=== PATIENT | female | born 1940 | race Caucasian/White ===

== ENCOUNTER 2016-11-12 12:27 | Outpatient (CLI) | payer MEDICARE, BC | END 2016-11-12 12:28 | disposition home or self-care (01) | DX: I48.91 Unspecified atrial fibrillation (principal) ==

== ENCOUNTER 2016-12-11 15:08 | Outpatient (CLI) | payer MEDICARE, BC | END 2016-12-11 15:09 | disposition home or self-care (01) | DX: I48.91 Unspecified atrial fibrillation (principal) ==

== ENCOUNTER 2017-01-08 13:02 | Outpatient (CLI) | payer MEDICARE, BC | END 2017-01-08 13:03 | disposition home or self-care (01) | DX: I48.91 Unspecified atrial fibrillation (principal) ==

== ENCOUNTER 2017-01-22 13:54 | Outpatient (CLI) | payer MEDICARE, BC | END 2017-01-22 13:55 | disposition home or self-care (01) | DX: I48.91 Unspecified atrial fibrillation (principal) ==

== ENCOUNTER 2017-02-03 13:08 | Outpatient (CLI) | payer MEDICARE, BC | END 2017-02-03 13:09 | disposition home or self-care (01) | DX: I48.91 Unspecified atrial fibrillation (principal) ==

== ENCOUNTER 2017-03-03 08:00 | Outpatient (CLI) | payer MEDICARE, BC | END 2017-03-03 08:01 | disposition home or self-care (01) | DX: I48.91 Unspecified atrial fibrillation (principal); E03.9 Hypothyroidism, unspecified ==

== ENCOUNTER 2017-03-03 08:00 | Outpatient (CLI) | payer MEDICARE, BC | END 2017-03-03 08:01 | disposition home or self-care (01) | DX: Z53.9 Procedure and treatment not carried out, unspecified reason (principal) ==

== ENCOUNTER 2017-04-01 10:13 | Outpatient (CLI) | payer MEDICARE, BC | END 2017-04-01 10:14 | disposition home or self-care (01) | LOC: LAB 10:13 | PROVIDERS: ATTEND Family Medicine | DX: I48.91 Unspecified atrial fibrillation (principal) | CPT/HCPCS: 85610 ==

== ENCOUNTER 2017-04-20 00:14 | Emergency (ER) | payer MEDICARE, BC ==
--- NOTE | 2017-04-20 01:51 | ED Physician Documentation ---
History of Present Illness - Stated complaint Stated Complaint: MOUTH BLEEDING - Chief complaint Chief Complaint: General - History obtained from History obtained from: Patient - Additonal information Additional information: The patient is a 77-year-old female who was sitting at home when she noticed blood in her mouth. She denies any injury, but is concerned because of treatment with warfarin for atrial fibrillation. Her last INR, nearly three weeks ago, was 2.6. 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 - Present Medications Home Medications: Ambulatory Orders Medication Instructions Recorded Confirmed Atenolol 12.5 mg PO BID 12/02/15 04/20/17 Warfarin [Coumadin] 2 mg PO 12/02/15 12/02/15 Esomeprazole Magnesium [Nexium] 40 mg PO DAILY 07/22/16 04/20/17 Warfarin [Coumadin] 1 mg 04/20/17 diltiaZEM [Cardizem] 120 mg PO DAILY 04/20/17 04/20/17 - Allergies Allergies/Adverse Reactions: Allergies Allergy/AdvReac Type Severity Reaction Status Date / Time morphine Allergy Hallucinati Verified 12/02/15 16:13 ons Sulfa (Sulfonamide Allergy Unknown Verified 12/02/15 16:12 Antibiotics) - Social History Does the pt smoke?: No Smoking Status: Never smoker Does the pt drink ETOH?: No Does the pt have substance abuse?: No PD ED PE NORMAL - Vitals Vital signs reviewed: Yes (Hypertensive) - General General: Alert and oriented X 3, Well developed/nourished - HEENT HEENT: Atraumatic, EOMI, Pharynx benign, Other (There is scant bright blood on the right nasal mucosa, without bleeding currently. There is no blood or any sores found in the mouth.) - Neck Neck: No adenopathy, No JVD - Cardiac Cardiac: No murmur, Other (Regular rate, irregularly irregular rhythm.) - Respiratory Respiratory: No respiratory distress, Clear bilaterally - Derm Derm: No rash - Neuro Neuro: Alert and oriented X 3, No motor deficit, Normal speech Results - Vitals Vitals: Vital Signs - 24 hr 04/20/17 04/20/17 00:18 02:01 Temperature 36.2 C L 36.6 C Heart Rate 80 74 Respiratory 16 18 Rate Blood Pressure 180/104 H 170/89 H O2 Saturation 98 95 Oxygen O2 Source Room air - Labs Labs: Laboratory Tests 04/20/17 01:28 Whole Blood INR 2.2 H PD MEDICAL DECISION MAKING - ED course Complexity details: reviewed results, re-evaluated patient, considered differential, d/w patient, d/w family ED course: The patient's presentation is most consistent with a minor right anterior epistaxis. There is no ongoing bleeding, and I do not think cautery would be of clinical benefit at this time. INR was checked and is in the therapeutic range at 2.2. I discussed with the patient and her the likely source of blood , and advised no change in her anticoagulation medication. I discussed with them potentially worrisome signs or symptoms that should prompt reevaluation in the emergency department. Departure - Departure Disposition: 01 Home, Self Care Clinical Impression: Anterior epistaxis, Warfarin anticoagulation Atrial fibrillation Qualifiers: Atrial fibrillation type: chronic Qualified Code(s): I48.2 - Chronic atrial fibrillation Hypertension Qualifiers: Hypertension type: unspecified secondary hypertension Qualified Code(s): I15.9 - Secondary hypertension, unspecified; I15 - Secondary hypertension Condition: Stable Instructions: ED Nosebleed Follow-Up: Piero Hammer MD [Primary Care Provider] - Comments: Avoid straining or forceful sneezing. Continue warfarin at your previously prescribed dosage. Follow-up with your primary physician or return to the emergency department if you develop recurrent or increasing nosebleed that does not resolve within fifteen minutes of holding pressure. Discharge Date/Time: 04/20/17 02:12
[2017-04-20 02:01] VITALS: BP 170/89
== END 2017-04-20 02:12 | disposition home or self-care (01) ==
LOC: ED 00:14
DX: R04.0 Epistaxis (principal); I48.2 Chronic atrial fibrillation; I10 Essential (primary) hypertension; Z79.01 Long term (current) use of anticoagulants
CPT/HCPCS: 85610; 99282; 99283

== ENCOUNTER 2017-05-19 12:48 | Outpatient (CLI) | payer MEDICARE, BC | END 2017-05-19 12:49 | disposition home or self-care (01) | LOC: LAB 12:48 | PROVIDERS: ATTEND Family Medicine | DX: I48.91 Unspecified atrial fibrillation (principal) | CPT/HCPCS: 85610 ==

== ENCOUNTER 2017-05-25 09:00 | Outpatient (CLI) | payer MEDICARE, BC ==
--- NOTE | 2017-05-25 11:49 | XRAY Report ---
BILATERAL FIVE-VIEW KNEES: 05/25/2017 CLINICAL INDICATION: Pain. TECHNIQUE: AP, weightbearing AP, lateral, sunrise, notch views of the bilateral knees were obtained. COMPARISON: 12/02/2015 FINDINGS: Mild bilateral osteoarthritis is present. There is no evidence of acute fracture or dislo cation. No effusion is seen. IMPRESSION: MILD BILATERAL OSTEOARTHRITIS. JOB #: [id number] EXT JOB #:[id number]
== END 2017-05-25 09:01 | disposition home or self-care (01) ==
LOC: DI 09:00
PROVIDERS: ATTEND Orthopaedic Surgery
DX: M17.0 Bilateral primary osteoarthritis of knee (principal)

== ENCOUNTER 2017-06-17 11:18 | Outpatient (CLI) | payer MEDICARE, BC | END 2017-06-17 11:19 | disposition home or self-care (01) | LOC: LAB 11:18 | PROVIDERS: ATTEND Family Medicine | DX: I48.91 Unspecified atrial fibrillation (principal) | CPT/HCPCS: 85610 ==

== ENCOUNTER 2017-07-16 12:05 | Outpatient (CLI) | payer MEDICARE, BC | END 2017-07-16 12:06 | disposition home or self-care (01) | LOC: LAB 12:05 | PROVIDERS: ATTEND Family Medicine | DX: I48.91 Unspecified atrial fibrillation (principal) | CPT/HCPCS: 85610 ==

== ENCOUNTER 2017-07-29 15:02 | Outpatient (CLI) | payer MEDICARE, BC | END 2017-07-29 15:03 | disposition home or self-care (01) | LOC: LAB 15:02 | PROVIDERS: ATTEND Family Medicine | DX: I48.91 Unspecified atrial fibrillation (principal) | CPT/HCPCS: 85610 ==

== ENCOUNTER 2017-08-26 11:39 | Outpatient (CLI) | payer MEDICARE, BC | END 2017-08-26 11:40 | disposition home or self-care (01) | LOC: LAB 11:39 | PROVIDERS: ATTEND Family Medicine | DX: I48.91 Unspecified atrial fibrillation (principal) | CPT/HCPCS: 85610 ==

== ENCOUNTER 2017-09-08 12:54 | Outpatient (CLI) | payer MEDICARE, BC | END 2017-09-08 12:55 | disposition home or self-care (01) | LOC: LAB 12:54 | PROVIDERS: ATTEND Family Medicine | DX: I48.91 Unspecified atrial fibrillation (principal) | CPT/HCPCS: 85610 ==

== ENCOUNTER 2017-11-03 08:39 | Outpatient (CLI) | payer MEDICARE, BC | END 2017-11-03 08:40 | disposition home or self-care (01) | LOC: LAB 08:39 | PROVIDERS: ATTEND Family Medicine | DX: I48.91 Unspecified atrial fibrillation (principal) | CPT/HCPCS: 85610 ==

== ENCOUNTER 2017-11-16 15:46 | Outpatient (CLI) | payer MEDICARE, BC | END 2017-11-16 15:47 | disposition home or self-care (01) | LOC: LAB 15:46 | PROVIDERS: ATTEND Family Medicine | DX: I48.91 Unspecified atrial fibrillation (principal) | CPT/HCPCS: 85610 ==

== ENCOUNTER 2017-11-26 14:08 | Outpatient (CLI) | payer MEDICARE, BC | END 2017-11-26 14:09 | disposition home or self-care (01) | LOC: LAB 14:08 | PROVIDERS: ATTEND Family Medicine | DX: I48.91 Unspecified atrial fibrillation (principal) | CPT/HCPCS: 85610 ==

== ENCOUNTER 2017-12-24 14:05 | Outpatient (CLI) | payer MEDICARE, BC | END 2017-12-24 14:06 | disposition home or self-care (01) | LOC: LAB 14:05 | PROVIDERS: ATTEND Family Medicine | DX: I48.91 Unspecified atrial fibrillation (principal) | CPT/HCPCS: 85610 ==

== ENCOUNTER 2018-01-21 15:22 | Outpatient (CLI) | payer MEDICARE, BC | END 2018-01-21 15:23 | disposition home or self-care (01) | LOC: LAB 15:22 | PROVIDERS: ATTEND Family Medicine | DX: I48.91 Unspecified atrial fibrillation (principal) | CPT/HCPCS: 85610 ==

== ENCOUNTER 2018-02-19 13:01 | Outpatient (CLI) | payer MEDICARE, BC | END 2018-02-19 13:02 | disposition home or self-care (01) | LOC: LAB 13:01 | PROVIDERS: ATTEND Family Medicine | DX: I48.91 Unspecified atrial fibrillation (principal) | CPT/HCPCS: 85610 ==

== ENCOUNTER 2018-03-19 12:35 | Outpatient (CLI) | payer MEDICARE, BC | END 2018-03-19 12:36 | disposition home or self-care (01) | LOC: LAB 12:35 | PROVIDERS: ATTEND Family Medicine | DX: I48.91 Unspecified atrial fibrillation (principal) | CPT/HCPCS: 85610 ==

== ENCOUNTER 2018-04-16 12:22 | Outpatient (CLI) | payer MEDICARE, BC | END 2018-04-16 12:23 | disposition home or self-care (01) | LOC: LAB 12:22 | PROVIDERS: ATTEND Family Medicine | DX: I48.91 Unspecified atrial fibrillation (principal) | CPT/HCPCS: 85610 ==

== ENCOUNTER 2018-05-17 11:46 | Outpatient (CLI) | payer MEDICARE, BC | END 2018-05-17 11:47 | disposition home or self-care (01) | LOC: LAB 11:46 | PROVIDERS: ATTEND Family Medicine | DX: I48.91 Unspecified atrial fibrillation (principal) | CPT/HCPCS: 85610 ==

== ENCOUNTER 2018-05-31 11:25 | Outpatient (CLI) | payer MEDICARE, BC | END 2018-05-31 11:26 | disposition home or self-care (01) | LOC: LAB 11:25 | PROVIDERS: ATTEND Family Medicine | DX: I48.91 Unspecified atrial fibrillation (principal) | CPT/HCPCS: 85610 ==

== ENCOUNTER 2018-06-14 14:40 | Outpatient (CLI) | payer MEDICARE, BC | END 2018-06-14 14:41 | disposition home or self-care (01) | LOC: LAB 14:40 | PROVIDERS: ATTEND Family Medicine | DX: I48.91 Unspecified atrial fibrillation (principal) | CPT/HCPCS: 85610 ==

== ENCOUNTER 2018-06-28 16:55 | Outpatient (CLI) | payer MEDICARE, BC | END 2018-06-28 16:56 | disposition home or self-care (01) | LOC: LAB 16:55 | PROVIDERS: ATTEND Family Medicine | DX: I48.91 Unspecified atrial fibrillation (principal) | CPT/HCPCS: 85610 ==

== ENCOUNTER 2018-07-12 13:12 | Outpatient (CLI) | payer MEDICARE, BC | END 2018-07-12 13:13 | disposition home or self-care (01) | LOC: LAB 13:12 | PROVIDERS: ATTEND Family Medicine | DX: I48.91 Unspecified atrial fibrillation (principal) | CPT/HCPCS: 85610 ==

== ENCOUNTER 2018-07-25 15:25 | Outpatient (CLI) | payer MEDICARE, BC | END 2018-07-25 15:26 | disposition home or self-care (01) | LOC: LAB.R 15:25 | PROVIDERS: ATTEND Family Medicine | DX: I48.91 Unspecified atrial fibrillation (principal) | CPT/HCPCS: 85610 ==

== ENCOUNTER 2018-08-23 12:25 | Outpatient (CLI) | payer MEDICARE, BC | END 2018-08-23 12:26 | disposition home or self-care (01) | LOC: LAB 12:25 | PROVIDERS: ATTEND Family Medicine | DX: I48.91 Unspecified atrial fibrillation (principal) | CPT/HCPCS: 85610 ==

== ENCOUNTER 2018-09-21 13:42 | Outpatient (CLI) | payer MEDICARE, BC | END 2018-09-21 13:43 | disposition home or self-care (01) | LOC: LAB 13:42 | PROVIDERS: ATTEND Family Medicine | DX: I48.91 Unspecified atrial fibrillation (principal) | CPT/HCPCS: 85610 ==

== ENCOUNTER 2018-10-21 14:20 | Outpatient (CLI) | payer MEDICARE, BC | END 2018-10-21 14:21 | disposition home or self-care (01) | LOC: LAB 14:20 | PROVIDERS: ATTEND Family Medicine | DX: I48.91 Unspecified atrial fibrillation (principal) | CPT/HCPCS: 85610 ==

== ENCOUNTER 2018-11-20 12:11 | Outpatient (CLI) | payer MEDICARE, BC | END 2018-11-20 12:12 | disposition home or self-care (01) | LOC: LAB 12:11 | PROVIDERS: ATTEND Family Medicine | DX: I48.91 Unspecified atrial fibrillation (principal) | CPT/HCPCS: 85610 ==

== ENCOUNTER 2018-12-19 11:15 | Outpatient (CLI) | payer MEDICARE, BC | END 2018-12-19 11:16 | disposition home or self-care (01) | LOC: LAB 11:15 | PROVIDERS: ATTEND Family Medicine | DX: I48.91 Unspecified atrial fibrillation (principal) | CPT/HCPCS: 85610 ==

== ENCOUNTER 2019-01-16 18:09 | Outpatient (CLI) | payer MEDICARE, BC | END 2019-01-16 18:10 | disposition home or self-care (01) | LOC: LAB 18:09 | PROVIDERS: ATTEND Family Medicine | DX: I48.91 Unspecified atrial fibrillation (principal) | CPT/HCPCS: 85610 ==

== ENCOUNTER 2019-02-14 15:46 | Outpatient (CLI) | payer MEDICARE, BC | END 2019-02-14 15:47 | disposition home or self-care (01) | LOC: LAB 15:46 | PROVIDERS: ATTEND Family Medicine | DX: I48.91 Unspecified atrial fibrillation (principal) | CPT/HCPCS: 85610 ==

== ENCOUNTER 2019-03-16 11:07 | Outpatient (CLI) | payer MEDICARE, BC | END 2019-03-16 11:08 | disposition home or self-care (01) | LOC: LAB 11:07 | PROVIDERS: ATTEND Family Medicine | DX: I48.91 Unspecified atrial fibrillation (principal) | CPT/HCPCS: 85610 ==

== ENCOUNTER 2019-04-17 11:25 | Outpatient (CLI) | payer MEDICARE, BC | END 2019-04-17 11:26 | disposition home or self-care (01) | LOC: LAB 11:25 | PROVIDERS: ATTEND Family Medicine | DX: I48.91 Unspecified atrial fibrillation (principal) | CPT/HCPCS: 85610 ==

== ENCOUNTER 2019-05-16 17:00 | Outpatient (CLI) | payer MEDICARE, BC | END 2019-05-16 17:01 | disposition home or self-care (01) | LOC: LAB 17:00 | PROVIDERS: ATTEND Family Medicine | DX: I48.91 Unspecified atrial fibrillation (principal) | CPT/HCPCS: 85610 ==

== ENCOUNTER 2019-05-29 | Outpatient (CLI) | payer MEDICARE, BC | END 2019-05-29 10:50 | disposition home or self-care (01) | DX: I48.91 Unspecified atrial fibrillation (principal) ==

== ENCOUNTER 2019-06-11 13:14 | Outpatient (CLI) | payer MEDICARE, BC | END 2019-06-11 13:15 | disposition home or self-care (01) | LOC: LAB 13:14 | PROVIDERS: ATTEND Family Medicine | DX: I48.91 Unspecified atrial fibrillation (principal) | CPT/HCPCS: 85610 ==

== ENCOUNTER 2019-07-10 11:34 | Outpatient (CLI) | payer MEDICARE, BC | END 2019-07-10 11:35 | disposition home or self-care (01) | LOC: LAB 11:34 | PROVIDERS: ATTEND Family Medicine | DX: I48.91 Unspecified atrial fibrillation (principal) | CPT/HCPCS: 85610 ==

== ENCOUNTER 2019-08-07 14:08 | Outpatient (CLI) | payer MEDICARE, BC | END 2019-08-07 14:09 | disposition home or self-care (01) | LOC: LAB 14:08 | PROVIDERS: ATTEND Family Medicine | DX: I48.91 Unspecified atrial fibrillation (principal) | CPT/HCPCS: 85610 ==

== ENCOUNTER 2019-09-04 10:53 | Outpatient (CLI) | payer MEDICARE, BC | END 2019-09-04 10:54 | disposition home or self-care (01) | LOC: LAB 10:53 | PROVIDERS: ATTEND Family Medicine | DX: I48.91 Unspecified atrial fibrillation (principal) | CPT/HCPCS: 85610 ==

== ENCOUNTER 2019-10-01 10:16 | Outpatient (CLI) | payer MEDICARE, BC | END 2019-10-01 10:17 | disposition home or self-care (01) | LOC: LAB 10:16 | PROVIDERS: ATTEND Family Medicine | DX: I48.91 Unspecified atrial fibrillation (principal) | CPT/HCPCS: 85610 ==

== ENCOUNTER 2019-10-29 14:21 | Outpatient (CLI) | payer MEDICARE, BC | END 2019-10-29 14:22 | disposition home or self-care (01) | LOC: LAB 14:21 | PROVIDERS: ATTEND Family Medicine | DX: I48.91 Unspecified atrial fibrillation (principal) | CPT/HCPCS: 85610 ==

== ENCOUNTER 2019-11-27 12:14 | Outpatient (CLI) | payer MEDICARE, BC | END 2019-11-27 12:15 | disposition home or self-care (01) | LOC: LAB 12:14 | PROVIDERS: ATTEND Family Medicine | DX: I48.91 Unspecified atrial fibrillation (principal) | CPT/HCPCS: 85610 ==

== ENCOUNTER 2019-12-08 14:07 | Outpatient (CLI) | payer MEDICARE, BC ==
[2019-12-08 14:29] LABS: BASOPHILS # (AUTO) 0.1 10^3/uL (0.0-0.1); BASOPHILS % (AUTO) 1.4 %; EOSINOPHILS # (AUTO) 0.1 10^3/uL (0.0-0.7); EOSINOPHILS % (AUTO) 2.2 %; HGB - HEMOGLOBIN 15.3 g/dL (12.0-16.0); LYMPHOCYTES # (AUTO) 1.3 10^3/uL (1.5-3.5); LYMPHOCYTES % (AUTO) 26.1 %; MEAN CORPUSCULAR HEMOGLOBIN 31.9 pg (27.0-31.0); MEAN CORPUSCULAR HGB CONC 32.7 g/dL (32.0-36.0); MEAN CORPUSCULAR VOLUME 97.5 fL (81.0-99.0); MEAN PLATELET VOLUME 10.8 fL (7.9-10.8); MONOCYTES # (AUTO) 0.5 10^3/uL (0.0-1.0); NEUTROPHILS # (AUTO) 3.1 10^3/uL (1.5-6.6); NEUTROPHILS % (AUTO) 60.1 %; PLT - PLATELET COUNT 300 10^3/uL (130-450); RED CELL DISTRIBUTION WIDTH 13.5 % (12.0-15.0); WHITE BLOOD COUNT 5.1 x10^3/uL (4.8-10.8)
[2019-12-08 15:39] LABS: ALBUMIN 4.2 g/dL (3.2-5.5); ALBUMIN/GLOBULIN RATIO 1.3 (1.0-2.2); ALKALINE PHOSPHATASE 101 IU/L (42-121); ALT ALANINE AMINOTRANSFERASE 25 IU/L (10-60); AST ASPARTATE AMINOTRANSFERASE 27 IU/L (10-42); BILIRUBIN,TOTAL 1.3 mg/dL (0.2-1.0); BUN - BLOOD UREA NITROGEN 12 mg/dL (6-20); CARBON DIOXIDE - CO2 25 mmol/L (21-32); CHLORIDE 105 mmol/L (101-111); CHOL/HDL RATIO 2.4 (<4.4); CHOLESTEROL 169 mg/dL; CREATININE 0.6 mg/dL (0.4-1.0); GFR - MDRD 96 (>89); GLUCOSE 108 mg/dL (70-100); HDL CHOLESTEROL 69 mg/dL; LDL CHOLESTEROL,CALCULATED 77 mg/dL; LDL/HDL RATIO 1.1 (<4.4); SODIUM 140 mmol/L (135-145); TOTAL PROTEIN 7.5 g/dL (6.7-8.2); VLDL CHOLESTEROL 23 mg/dL
== END 2019-12-08 14:08 | disposition home or self-care (01) ==
LOC: LAB 14:07
PROVIDERS: ATTEND Family Medicine
DX: I10 Essential (primary) hypertension (principal); I48.91 Unspecified atrial fibrillation; E03.9 Hypothyroidism, unspecified
CPT/HCPCS: 36415; 80053; 80061; 83721; 84443; 85025

== ENCOUNTER 2019-12-25 12:15 | Outpatient (CLI) | payer MEDICARE, BC | END 2019-12-25 12:16 | disposition home or self-care (01) | LOC: LAB 12:15 | PROVIDERS: ATTEND Family Medicine | DX: I48.91 Unspecified atrial fibrillation (principal) | CPT/HCPCS: 85610 ==

== ENCOUNTER 2020-01-21 14:48 | Outpatient (CLI) | payer MEDICARE, BC | END 2020-01-21 14:49 | disposition home or self-care (01) | LOC: LAB 14:48 | PROVIDERS: ATTEND Family Medicine | DX: I48.91 Unspecified atrial fibrillation (principal) | CPT/HCPCS: 85610 ==

== ENCOUNTER 2020-02-19 14:23 | Outpatient (CLI) | payer MEDICARE, BC | END 2020-02-19 14:24 | disposition home or self-care (01) | LOC: LAB 14:23 | PROVIDERS: ATTEND Internal Medicine | DX: Z53.9 Procedure and treatment not carried out, unspecified reason (principal) ==

== ENCOUNTER 2020-02-19 14:25 | Outpatient (CLI) | payer MEDICARE, BC | END 2020-02-19 23:59 | disposition home or self-care (01) | LOC: LAB 14:25 | PROVIDERS: ATTEND Family Medicine | DX: I48.91 Unspecified atrial fibrillation (principal) | CPT/HCPCS: 85610 ==

== ENCOUNTER 2020-03-18 14:39 | Outpatient (CLI) | payer MEDICARE, BC | END 2020-03-18 14:40 | disposition home or self-care (01) | LOC: LAB 14:39 | PROVIDERS: ATTEND Family Medicine | DX: I48.91 Unspecified atrial fibrillation (principal) | CPT/HCPCS: 85610 ==

== ENCOUNTER 2020-03-31 14:14 | Outpatient (CLI) | payer MEDICARE, BC | END 2020-03-31 14:15 | disposition home or self-care (01) | LOC: LAB 14:14 | PROVIDERS: ATTEND Family Medicine | DX: I48.91 Unspecified atrial fibrillation (principal) | CPT/HCPCS: 85610 ==

== ENCOUNTER 2020-04-28 16:41 | Outpatient (CLI) | payer MEDICARE, BC | END 2020-04-28 16:42 | disposition home or self-care (01) | LOC: LAB 16:41 | PROVIDERS: ATTEND Family Medicine | DX: I48.91 Unspecified atrial fibrillation (principal) | CPT/HCPCS: 36415; 85610 ==

== ENCOUNTER 2020-06-09 16:09 | Outpatient (CLI) | payer MEDICARE, BC | END 2020-06-09 16:10 | disposition home or self-care (01) | LOC: LAB 16:09 | PROVIDERS: ATTEND Family Medicine | DX: I48.91 Unspecified atrial fibrillation (principal) | CPT/HCPCS: 85610 ==

== ENCOUNTER 2020-06-18 11:48 | Outpatient (CLI) | payer MEDICARE, BC ==
[2020-06-18 12:10] LABS: BASOPHILS # (AUTO) 0.1 10^3/uL (0.0-0.1); BASOPHILS % (AUTO) 0.9 %; EOSINOPHILS # (AUTO) 0.1 10^3/uL (0.0-0.7); EOSINOPHILS % (AUTO) 1.4 %; HGB - HEMOGLOBIN 16.3 g/dL (12.0-16.0); LYMPHOCYTES # (AUTO) 1.3 10^3/uL (1.5-3.5); MEAN CORPUSCULAR HEMOGLOBIN 32.1 pg (27.0-31.0); MEAN CORPUSCULAR HGB CONC 33.1 g/dL (32.0-36.0); MEAN CORPUSCULAR VOLUME 97.2 fL (81.0-99.0); MEAN PLATELET VOLUME 10.6 fL (7.9-10.8); MONOCYTES # (AUTO) 0.6 10^3/uL (0.0-1.0); MONOCYTES % (AUTO) 11.2 %; NEUTROPHILS # (AUTO) 3.5 10^3/uL (1.5-6.6); NEUTROPHILS % (AUTO) 62.1 %; PLT - PLATELET COUNT 338 10^3/uL (130-450); RED BLOOD COUNT 5.07 10^6/uL (4.20-5.40); RED CELL DISTRIBUTION WIDTH 13.7 % (12.0-15.0); WHITE BLOOD COUNT 5.6 x10^3/uL (4.8-10.8)
== END 2020-06-18 11:49 | disposition home or self-care (01) ==
LOC: LAB 11:48
PROVIDERS: ATTEND Family Medicine
DX: D69.9 Hemorrhagic condition, unspecified (principal); I48.91 Unspecified atrial fibrillation
CPT/HCPCS: 36415; 85025; 85610

== ENCOUNTER 2020-06-18 21:26 | Emergency (ER) | payer MEDICARE, BC ==
--- NOTE | 2020-06-18 21:32 | ED Physician Documentation ---
PD HPI HEENT - Stated complaint Stated Complaint: MOUTH BLEEDING - History obtained from History obtained from: Patient, Family - History of Present Illness Timing - onset: Yesterday Timing - details: Abrupt onset, Intermittant Pain level now: 0 Location: Mouth Improves: Nothing Worsens: Other (no exacerbating factors) Associated symptoms: No: Fever Recently seen: Other (evaluated by dentist/OMFS earlier today (twice)) - Additional information Additional information: patient had dental extractions (two adjacent teeth) 10 days ago. She is on warfarin and has had intermittent bleeding from the extraction site since yester day. She was evaluated by Dr. Clemente Moreland twice earlier today for this bleeding, but it persists and thus she presents to ED at this time. 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 - Present Medications Home Medications: Ambulatory Orders Medication Instructions Recorded Confirmed Warfarin [Coumadin] 2 mg PO 12/02/15 12/02/15 atenoloL [Atenolol] 12.5 mg PO BID 12/02/15 04/20/17 Esomeprazole Magnesium [Nexium] 40 mg PO DAILY 07/22/16 04/20/17 Warfarin [Coumadin] 1 mg 04/20/17 diltiaZEM [Cardizem] 120 mg PO DAILY 04/20/17 04/20/17 - Allergies Allergies/Adverse Reactions: Allergies Allergy/AdvReac Type Severity Reaction Status Date / Time morphine Allergy Hallucinati Verified 12/02/15 16:13 ons Sulfa (Sulfonamide Allergy Unknown Verified 12/02/15 16:12 Antibiotics) - Social History Does the pt smoke?: No Smoking Status: Never smoker Does the pt drink ETOH?: No Does the pt have substance abuse?: No PD ED PE NORMAL - Vitals Vital signs reviewed: Yes - General General: Alert and oriented X 3, No acute distress, Well developed/nourished PD ED PE EXPANDED - HEENT HEENT: Other (tooth numbers 11 and 12 are post-extraction and the site is c/d/i without bleeding or swelling. There is slow, steady bleeding from a small linear opening in the gingiva (buccal) adjacent to tooth number 14 ). No: Dry socket Results - Vitals Vitals: Vital Signs - 24 hr 06/18/20 06/18/20 21:28 23:48 Temperature 36.6 C Heart Rate 99 78 Respiratory 18 18 Rate Blood Pressure 157/103 H 155/78 H O2 Saturation 97 98 Oxygen O2 Source Room air PD MEDICAL DECISION MAKING - ED course Complexity details: reviewed results (from outpatient blood tests performed earlier today (INR, CBC)), re-evaluated patient, considered differential, d/w patient, d/w family ED course: d/w Dr. Moreland, agrees with txa applied to gauze (dental cotton roll used) to be placed over the site of bleeding and applying constant pressure x 5-10 minutes. He says that applying pressure is what stopped the bleeding earlier today in the office and that patient was told she would probably experience episodic bleeding and should reapply pressure should this happen. Dr. Moreland recommends against placement of sutures in ED at this time. IV fluids (1 liter NS) given in ED (patient and her family express concern that she is not eating/drinking today due to the bleeding). On reevaluation after dental cotton roll w/ txa placed, there was some clotting around this material and the cotton roll appeared to be nearing saturation with blood. However, this was without pressure applied. I replaced the cotton roll with a new one, again with txa applied to the cotton roll, and had patient hold steady pressure (pushing against her cheek using 3 fingers pushing against the cotton roll), and on reevaluation 20-30 minutes later, there is no bleeding, no clots, and the cotton roll has only small amount of blood. Patient reassured and instructed to reapply this pressure if bleeding starts again, instructed to recontact Dr. Moreland in the morning, and to return if worse. She has stopped her warfarin as advised by her PMD, patient says she was told to stop the warfarin for 5 days; her most recent dose was 24 hours ago. Departure - Departure Disposition: 01 Home, Self Care Clinical Impression: Warfarin anticoagulation, Postoperative bleeding from mouth Condition: Good Instructions: ED Wound Check Post Op Bleeding Follow-Up: CLEMENTE MORELAND [Physician No Access] - Discharge Date/Time: 06/18/20 23:48
[2020-06-18] MEDS ORDERED: TRANEXAMIC ACID 1,000 MG/10 ML VIAL ONE (22:00)
[2020-06-18] MEDS ORDERED: TRANEXAMIC ACID 1,000 MG/10 ML VIAL NAS STA (22:00)
[2020-06-18] MEDS ORDERED: SODIUM CHLORIDE 0.9% 1,000 ML IV STA (22:16)
[2020-06-18 23:50] VITALS: BP 155/78
== END 2020-06-18 23:48 | disposition home or self-care (01) ==
LOC: ED 21:26
DX: K91.841 Postprocedural hemorrhage of a digestive system organ or structure following other procedure (principal); Z79.01 Long term (current) use of anticoagulants
CPT/HCPCS: 96360; 99281

== ENCOUNTER 2020-06-22 14:32 | Outpatient (CLI) | payer MEDICARE, BC | END 2020-06-22 14:33 | disposition home or self-care (01) | LOC: LAB 14:32 | PROVIDERS: ATTEND Family Medicine | DX: I48.91 Unspecified atrial fibrillation (principal) | CPT/HCPCS: 85610 ==

== ENCOUNTER 2020-07-02 15:56 | Outpatient (CLI) | payer MEDICARE, BC | END 2020-07-02 15:57 | disposition home or self-care (01) | LOC: LAB 15:56 | PROVIDERS: ATTEND Family Medicine | DX: I48.91 Unspecified atrial fibrillation (principal) | CPT/HCPCS: 85610 ==

== ENCOUNTER 2020-10-15 10:17 | Outpatient (CLI) | payer MEDICARE, BC | END 2020-10-15 10:18 | disposition home or self-care (01) | LOC: LAB 10:17 | PROVIDERS: ATTEND Family Medicine | DX: E03.9 Hypothyroidism, unspecified (principal) | CPT/HCPCS: 36415; 84443 ==

== ENCOUNTER 2021-01-25 15:09 | Outpatient (CLI) | payer MEDICARE, BC | END 2021-01-25 15:10 | disposition home or self-care (01) | LOC: LAB 15:09 | PROVIDERS: ATTEND Family Medicine | DX: E03.9 Hypothyroidism, unspecified (principal) | CPT/HCPCS: 36415; 84443 ==

== ENCOUNTER 2022-03-11 06:00 | Outpatient (CLI) | payer MEDICARE, BC ==
--- NOTE | 2022-03-11 14:45 | XRAY Report ---
PROCEDURE: Knee 4 View LT INDICATIONS: KNEE PAIN TECHNIQUE: 4 views of the left knee(s) were acquired. COMPARISON: None. FINDINGS: Bones: No fractures or dislocations. No suspicious bony lesions. Moderate osteophytic degenerative changes noted in L3 compartments of the left knee. Soft tissues: No joint effusion. No suspicious soft tissue calcifications. IMPRESSION: Moderate left knee tricompartmental osteoarthritis. Reviewed by: Annalise Cortez MD, PhD on 03/11/2022 2:44 PM PDT Approved by: Annalise Cortez MD, PhD on 03/11/2022 2:44 PM PDT Station ID: [id number]
== END 2022-03-11 23:59 | disposition home or self-care (01) ==
LOC: DI.WOS 06:00
PROVIDERS: ATTEND Physician Assistant
DX: M17.12 Unilateral primary osteoarthritis, left knee (principal)

== ENCOUNTER 2022-07-31 11:41 | Outpatient (CLI) | payer MEDICARE, BC ==
[~2022-07-31 11:41] MED LIST: GADOBUTROL 10 MMOL/10 ML VIAL ONE
[2022-07-31 12:11] LABS: CREATININE 0.7 mg/dL (0.4-1.0)
[2022-07-31] MEDS ORDERED: GADOBUTROL 10 MMOL/10 ML VIAL IVP ONE (14:51)
--- NOTE | 2022-07-31 16:26 | MRI Report ---
PROCEDURE: MRI brain with and without contrast INDICATIONS: DIZZINESS CONTRAST: IV CONTRAST: Gadavist ml: 8.2 TECHNIQUE: Noncontrast axial T1 spin echo, axial T2 fast spin echo, sagittal and axial FLAIR, coronal T2 fast sp in echo, axial gradient echo, axial diffusion and ADC through the brain. After the administration of contrast, axial and coronal T1 spin echo with fat saturation through the brain. COMPARISON: None. FINDINGS: Image quality: Excellent. CSF spaces: Basal cisterns are patent. No extra-axial fluid collections. Ventricles are normal in size and shape. Brain: No midline shift. No intracranial bleeds or masses. No abnormal intracranial enhancement. There is cerebral volume loss for age. There is periventricular white matter chronic small vessel is chemic change. The brainstem appears normal. Diffusion-weighted images demonstrate no infarct. Nor mal intravascular flow voids are present. Skull and face: Calvarial marrow is normal in signal. Orbits appear normal. Sinuses: Sinuses and mastoids appear clear. IMPRESSION: Mild atrophy and multifocal white matter chronic ischemic change without acute infarct, hemorrhage or mass lesion Reviewed by: Anuj Huynh MD on 07/31/2022 3:25 PM [email or web address] Approved by: Anuj Huynh MD on 07/31/2022 3:25 PM [email or web address] Station ID: [id number]
== END 2022-07-31 11:42 | disposition home or self-care (01) ==
LOC: LAB 11:41
PROVIDERS: ATTEND Family Medicine
DX: R42 Dizziness and giddiness (principal); G31.9 Degenerative disease of nervous system, unspecified; R90.82 White matter disease, unspecified
CPT/HCPCS: 36415; 70553; 82565; 84520; A9585

== ENCOUNTER 2024-03-24 12:08 | Outpatient (CLI) | payer MEDICARE, BC ==
[2024-03-24 12:23] LABS: BASOPHILS # (AUTO) 0.1 10^3/uL (0.0-0.1); EOSINOPHILS # (AUTO) 0.1 10^3/uL (0.0-0.7); EOSINOPHILS % (AUTO) 1.6 %; HCT - HEMATOCRIT 37.8 % (37.0-47.0); HGB - HEMOGLOBIN 12.1 g/dL (12.0-16.0); LYMPHOCYTES # (AUTO) 1.3 10^3/uL (1.5-3.5); MEAN CORPUSCULAR HEMOGLOBIN 29.8 pg (27.0-31.0); MEAN CORPUSCULAR VOLUME 93.1 fL (81.0-99.0); MEAN PLATELET VOLUME 9.6 fL (7.9-10.8); MONOCYTES # (AUTO) 0.6 10^3/uL (0.0-1.0); MONOCYTES % (AUTO) 9.4 %; NEUTROPHILS # (AUTO) 4.6 10^3/uL (1.5-6.6); NEUTROPHILS % (AUTO) 68.7 %; PLT - PLATELET COUNT 376 10^3/uL (130-450); RED BLOOD COUNT 4.06 10^6/uL (4.20-5.40); RED CELL DISTRIBUTION WIDTH 13.9 % (12.0-15.0); WHITE BLOOD COUNT 6.7 x10^3/uL (4.8-10.8)
[2024-03-24 12:53] LABS: ALBUMIN 4.1 g/dL (3.2-5.5); ALBUMIN/GLOBULIN RATIO 1.5 (1.0-2.2); BILIRUBIN,TOTAL 1.1 mg/dL (0.2-1.0); CALCIUM 9.1 mg/dL (8.5-10.3); CREATININE 0.7 mg/dL (0.6-1.3); POTASSIUM 4.1 mmol/L (3.5-4.5); TOTAL PROTEIN 6.8 g/dL (6.4-8.9)
[2024-03-24 13:03] LABS: THYROID STIMULATING HORMONE 3.2 uIU/mL (0.34-5.60)
== END 2024-03-24 12:09 | disposition home or self-care (01) ==
LOC: LAB 12:08
PROVIDERS: ATTEND Family Medicine
DX: I10 Essential (primary) hypertension (principal); E87.1 Hypo-osmolality and hyponatremia; R79.89 Other specified abnormal findings of blood chemistry; E03.9 Hypothyroidism, unspecified
CPT/HCPCS: 36415; 80053; 84443; 85025